=== PATIENT | male | born 1995 | race Two or more races ===

== ENCOUNTER 2017-01-15 16:53 | Emergency (ER) | payer MEDICAID ==
[~2017-01-15] VITALS: Ht 188 cm; Wt 68.1 kg
[2017-01-15 21:06] VITALS: BP 137/83
== END 2017-01-15 22:08 | disposition home or self-care (01) ==
LOC: ER 16:56
DX: M25.522 Pain in left elbow (principal); M54.2 Cervicalgia; K21.9 Gastro-esophageal reflux disease without esophagitis; Y08.89XA Assault by other specified means, initial encounter; Y93.89 Activity, other specified; Y99.8 Other external cause status; Y92.89 Other specified places as the place of occurrence of the external cause
CPT/HCPCS: 73080

== ENCOUNTER 2018-10-04 07:09 | Emergency (ER) | payer MEDICAID ==
[~2018-10-04] VITALS: Ht 180.3 cm; Wt 68.0 kg
[2018-10-04 07:46] LABS: Basophils # (auto) 0.1 uL; Basophils % (auto) 0.7 % (0.0-2.0); Eosinophils # (auto) 0.1 uL; Monocytes # (auto) 0.5 uL
[2018-10-04 07:47] LABS: Eosinophils % (auto) 1.5 % (0.0-7.0); Hematocrit 50.3 % (41.0-53.0); Hemoglobin 17.6 g/dL (13.5-17.5); Lymphocytes # (auto) 2.3 uL; Lymphocytes % (auto) 26.2 % (10.0-50.0); Mean Corpuscular Hemoglobin 29.8 pg (28.0-32.0); Mean Corpuscular Hgb Conc. 35.1 g/dL (32.0-36.0); Mean Corpuscular Volume 84.9 fL (80.0-100.0); Monocytes % (auto) 5.4 % (0.0-12.0); Neutrophils # (auto) 5.8 uL; Neutrophils % (auto) 66.2 % (37.0-80.0); Nucleated Red Blood Cells % 0.2 %; Platelet Count (auto) 170 10^3/uL (140-450); Red Blood Cells 5.92 10^6/uL (4.5-5.90); Red Cell Distribution Width 13.4 % (11.8-14.3); White Blood Cell 8.8 10^3/uL (4.4-10.8)
[2018-10-04] MEDS ORDERED: KETOROLAC TROMETH 30 MG/ML 1ML VIAL IV ONE (08:00)
[2018-10-04 08:06] LABS: Albumin 5.3 g/dL (3.4-5.0); Anion Gap 15 (5-15); Blood Urea Nitrogen 16 mg/dL (7-18); Calcium 9.8 mg/dL (8.5-10.1); Carbon Dioxide 19 mmol/L (21-32); Chloride 104 mmol/L (98-107); Glucose 125 mg/dL (74-106); Potassium 3.1 mmol/L (3.5-5.1); Sodium 138 mmol/L (136-145)
[2018-10-04 08:11] LABS: Alanine Aminotransferase 19 U/L (16-61); Alkaline Phosphatase 67 U/L (45-117); Aspartate Aminotransferase 15 U/L (15-37); GFR African American 76 mL/min; GFR Non-African American 63 mL/min; Total Protein 8.4 g/dL (6.4-8.2)
[2018-10-04] MEDS ORDERED: ALPRAZolam 0.5 MG TAB PO ONE (08:15)
[2018-10-04] MEDS ORDERED: POTASSIUM CHL 10% (20 MEQ/15ML) 15ml ORAL SOLN PO ONE (08:30)
[2018-10-04] MEDS ORDERED: SODIUM CHLORIDE 0.9% 1,000 ML IV ONE (08:30)
[2018-10-04] MEDS ORDERED: POTASSIUM CHL 20 Meq TABLET PO ONE (09:00)
[2018-10-04 10:57] LABS: Urine Bacteria NONE SEEN /hpf (None Seen); Urine Blood Negative /uL (Negative); Urine Hyaline Cast FEW /lpf (0 - 2); Urine Mucus FEW (None Seen); Urine Specific Gravity 1.021 (1.001-1.035); Urine WBC 4 /hpf (0 - 3)
[2018-10-04 11:06] LABS: Amphetamine Screen, Urine NEGATIVE (NEGATIVE); Barbiturate Scree,Urine NEGATIVE (NEGATIVE); Benzodiazephine Screen, Urine POSITIVE (NEGATIVE); Cannabinoid Screen, Urine POSITIVE (NEGATIVE); Cocaine Screen, Urine NEGATIVE (NEGATIVE); Opiate Scree,Urine NEGATIVE (NEGATIVE); Phencyclidine Screen, Urine NEGATIVE (NEGATIVE)
[2018-10-04 13:23] VITALS: BP 137/75
== END 2018-10-04 13:21 | disposition home or self-care (01) ==
LOC: ER 07:09 → EDBD 07:09 → ER 13:21
DX: R07.89 Other chest pain (principal); E80.6 Other disorders of bilirubin metabolism; E87.6 Hypokalemia; F12.90 Cannabis use, unspecified, uncomplicated; Q24.0 Dextrocardia; F41.8 Other specified anxiety disorders
CPT/HCPCS: 36415; 71046; 76705; 80053; 80307; 81001; 84443; 84484; 85025; 85379; 93005

== ENCOUNTER 2020-06-11 22:24 | Emergency (ER) | payer MEDICAID ==
[~2020-06-11] VITALS: Ht 182.9 cm; Wt 59.0 kg
[2020-06-12 04:07] VITALS: BP 131/96
== END 2020-06-12 04:36 | disposition home or self-care (01) ==
LOC: ER 22:24
DX: M54.5 Low back pain (principal); F41.0 Panic disorder [episodic paroxysmal anxiety]; J45.909 Unspecified asthma, uncomplicated; K21.9 Gastro-esophageal reflux disease without esophagitis; F17.210 Nicotine dependence, cigarettes, uncomplicated; Z76.0 Encounter for issue of repeat prescription
CPT/HCPCS: 74176

== ENCOUNTER 2024-12-04 20:54 | Emergency (ER) | payer MEDICAID ==
[~2024-12-04] VITALS: Ht 172.7 cm; Wt 68.0 kg
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
--- NOTE | 2024-12-04 21:26 | ECG ---
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
[2024-12-04] MEDS: HYDROcodone-ACET 5/325MG TAB PO ONE (22:51)
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
[2024-12-05 04:06] VITALS: BP 134/88; PULSE 100; TEMP 98.1
[2024-12-05 04:09] VITALS: RESP 20; O2SAT 94
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
== END 2024-12-05 04:21 | disposition home or self-care (01) ==
LOC: EDUNIT# 20:54 → ER 20:54 → EDBD 20:54 → ER 12-05 04:21
DX: M79.18 Myalgia, other site (principal); R55 Syncope and collapse; F17.210 Nicotine dependence, cigarettes, uncomplicated; F12.90 Cannabis use, unspecified, uncomplicated; J45.909 Unspecified asthma, uncomplicated; F20.9 Schizophrenia, unspecified; F32.A Depression, unspecified; F41.9 Anxiety disorder, unspecified; K21.9 Gastro-esophageal reflux disease without esophagitis; Y08.89XA Assault by other specified means, initial encounter; Y93.89 Activity, other specified; Y92.89 Other specified places as the place of occurrence of the external cause; Y99.8 Other external cause status
CPT/HCPCS: 70450; 71045; 73120; 93005